=== PATIENT | male | born 1945 | race Caucasian/White ===

== ENCOUNTER 2023-11-18 02:46 | Emergency (ER) | payer MEDICARE, OTHER ==
[2023-11-18] MEDS: Sodium Chloride 0.9% 10 ML Syringe FLUSH PRN (03:11)
[2023-11-18 03:28] LABS: HEMATOCRIT 31.9 % (40.0-52.0); HEMOGLOBIN 10.8 g/dL (13.0-17.0); MEAN CORPUSCULAR HEMOGLOBIN 31.2 pg (27.0-31.0); MEAN CORPUSCULAR HGB CONC 33.9 g/dL (32.0-36.0); MEAN CORPUSCULAR VOLUME 92.2 fL (82.0-92.0); RED BLOOD CELL COUNT 3.46 10^6/uL (4.50-6.00); RED CELL DISTRIBUTION WIDTH 13.8 % (11.5-14.5); WHITE BLOOD CELL COUNT,WBC 13.82 10^3/uL (5.00-10.00)
[2023-11-18 03:29] LABS: BASOPHILS ABSOLUTE AUTO 0.07 10^3/uL (0.00-0.10); BASOPHILS PERCENT AUTO 0.5 % (0.0-1.0); EOSINOPHILS ABSOLUTE AUTO 0.41 10^3/uL (0.10-0.30); IMMATURE GRAN ABSOLUTE AUTO 0.14 10^3/uL (0.00-0.50); LYMPHOCYTES ABSOLUTE AUTO 2.81 10^3/uL (1.00-4.00); LYMPHOCYTES PERCENT AUTO 20.3 % (20.0-40.0); MEAN PLATELET VOLUME 8.7 fL (7.4-10.4); MONOCYTES ABSOLUTE AUTO 1.23 10^3/uL (0.10-0.80); MONOCYTES PERCENT AUTO 8.9 % (2.0-8.0); NEUTROPHILS ABSOLUTE AUTO 9.16 10^3/uL (2.50-7.00); NEUTROPHILS PERCENT AUTO 66.3 % (50.0-70.0); PLATELET COUNT,PLT 266 10^3/uL (150-400)
[2023-11-18] MEDS: Sodium Chloride 0.9% 1,000 ML IV ONE (03:29)
[2023-11-18 03:45] LABS: ALBUMIN 3.18 g/dL (3.40-5.00); ANION GAP 17.1 mmol/L (5-15); BILIRUBIN TOTAL 0.3 mg/dL (0.2-1.0); CARBON DIOXIDE,CO2 22.2 mmol/L (21.0-32.0); CREATININE 2.32 mg/dL (0.51-1.17); EST CRCL DRUG DOSING (CG) 25.39 mL/min; POTASSIUM,K 5.3 mmol/L (3.5-5.1); PROTEIN TOTAL,TP 7.4 g/dL (6.4-8.2)
== END 2023-11-18 05:24 ==
LOC: KA.ED 02:46
DX: R07.9 Chest pain, unspecified (principal); I12.9 Hypertensive chronic kidney disease with stage 1 through stage 4 chronic kidney disease, or unspecified chronic kidney disease; N18.9 Chronic kidney disease, unspecified; R79.89 Other specified abnormal findings of blood chemistry; Z91.012 Allergy to eggs; Z91.011 Allergy to milk products; Z86.73 Personal history of transient ischemic attack (TIA), and cerebral infarction without residual deficits; Z88.0 Allergy status to penicillin
CPT/HCPCS: 36415; 71045; 80053; 83605; 83880; 84484; 85025; 85379; 96360; 99285-25; J3490; J7030

== ENCOUNTER 2023-12-29 13:01 | Emergency (ER) | payer MEDICARE, OTHER ==
[2023-12-29] MEDS ORDERED: Sodium Chloride 0.9% 10 ML Syringe FLUSH PRN (13:14)
[2023-12-29 13:53] LABS: BASOPHILS ABSOLUTE AUTO 0.04 10^3/uL (0.00-0.10); BASOPHILS PERCENT AUTO 0.4 % (0.0-1.0); EOSINOPHILS ABSOLUTE AUTO 0.23 10^3/uL (0.10-0.30); EOSINOPHILS PERCENT AUTO 2.2 % (1.0-3.0); HEMOGLOBIN 12.2 g/dL (13.0-17.0); IMMATURE GRAN ABSOLUTE AUTO 0.02 10^3/uL (0.00-0.50); IMMATURE GRAN PERCENT AUTO 0.2 % (0.0-5.0); LYMPHOCYTES PERCENT AUTO 17.4 % (20.0-40.0); MEAN CORPUSCULAR HEMOGLOBIN 30.4 pg (27.0-31.0); MEAN CORPUSCULAR VOLUME 92.3 fL (82.0-92.0); MEAN PLATELET VOLUME 8.7 fL (7.4-10.4); MONOCYTES ABSOLUTE AUTO 0.75 10^3/uL (0.10-0.80); MONOCYTES PERCENT AUTO 7.2 % (2.0-8.0); NEUTROPHILS ABSOLUTE AUTO 7.52 10^3/uL (2.50-7.00); NEUTROPHILS PERCENT AUTO 72.6 % (50.0-70.0); PLATELET COUNT,PLT 213 10^3/uL (150-400); RED BLOOD CELL COUNT 4.01 10^6/uL (4.50-6.00); WHITE BLOOD CELL COUNT,WBC 10.36 10^3/uL (5.00-10.00)
[2023-12-29 14:10] LABS: ALBUMIN 3.61 g/dL (3.40-5.00); ANION GAP 16.7 mmol/L (5-15); BILIRUBIN TOTAL 0.5 mg/dL (0.2-1.0); CALCIUM 9.7 mg/dL (8.7-10.3); CARBON DIOXIDE,CO2 25.2 mmol/L (21.0-32.0); CREATININE 1.63 mg/dL (0.51-1.17); EST CRCL DRUG DOSING (CG) 36.13 mL/min; POTASSIUM,K 3.9 mmol/L (3.5-5.1)
[2023-12-29 14:14] LABS: LACTIC ACID 1.1 mmol/L (0.4-2.0)
[2023-12-29] MEDS: Sodium Chloride 0.9% 1,000 ML IV ONE ×2 (14:27→15:52)
[2023-12-29 16:35] LABS: APPEARANCE,URINE CLEAR (CLEAR); BILIRUBIN,URINE NEGATIVE (NEGATIVE); COLOR,URINE YELLOW (YELLOW); GLUCOSE,URINE NEGATIVE (NEGATIVE); KETONES,URINE NEGATIVE (NEGATIVE); LEUKOCYTE ESTERASE,URINE NEGATIVE (NEGATIVE); NITRITE,URINE NEGATIVE (NEGATIVE); OCCULT BLOOD,URINE NEGATIVE (NEGATIVE); PROTEIN,URINE 30 mg/dL (NEGATIVE); UROBILINOGEN,URINE 0.2 E.U./dL (0.2-1.0)
[2023-12-29 16:46] LABS: BACTERIA,URINE NOT SEEN /HPF (NONE TO FEW); EPITHELIAL CELLS,URINE RARE /LPF; MUCUS,URINE NOT SEEN /LPF (NEGATIVE); RBC,URINE 0-5 /HPF (0-5); WBC,URINE 0-5 /HPF (0-5)
== END 2023-12-29 19:02 ==
LOC: KA.ED 13:01
DX: R41.0 Disorientation, unspecified (principal); E86.0 Dehydration; R79.89 Other specified abnormal findings of blood chemistry; I10 Essential (primary) hypertension; J44.9 Chronic obstructive pulmonary disease, unspecified; Z79.899 Other long term (current) drug therapy; Z91.011 Allergy to milk products; Z91.018 Allergy to other foods; Z88.0 Allergy status to penicillin
CPT/HCPCS: 36415; 71045; 80053; 81001; 83605; 85025; 87040; 96360; 96361; 99285-25; J7030

== ENCOUNTER 2024-01-31 01:02 | Inpatient (IN) | payer MEDICARE, OTHER ==
[2024-01-31 01:29] LABS: HEMATOCRIT 41.5 % (40.0-52.0); HEMOGLOBIN 14.1 g/dL (13.0-17.0); MEAN CORPUSCULAR HEMOGLOBIN 30.5 pg (27.0-31.0); MEAN CORPUSCULAR VOLUME 89.8 fL (82.0-92.0); MEAN PLATELET VOLUME 9.6 fL (7.4-10.4); RED BLOOD CELL COUNT 4.62 10^6/uL (4.50-6.00); RED CELL DISTRIBUTION WIDTH 12.5 % (11.5-14.5); WHITE BLOOD CELL COUNT,WBC 14.08 10^3/uL (5.00-10.00)
[2024-01-31 01:53] LABS: BASOPHILS PERCENT AUTO 0.1 % (0.0-1.0); EOSINOPHILS PERCENT AUTO 0.1 % (1.0-3.0); IMMATURE GRAN PERCENT AUTO 0.1 % (0.0-5.0); LYMPHOCYTES PERCENT AUTO 4.5 % (20.0-40.0); MONOCYTES PERCENT AUTO 4.7 % (2.0-8.0); NEUTROPHILS PERCENT AUTO 90.5 % (50.0-70.0); SLIDE REVIEW YES
[2024-01-31 01:54] LABS: PLATELET COUNT,PLT 189 10^3/uL (150-400)
[2024-01-31 01:57] LABS: ALBUMIN 3.78 g/dL (3.40-5.00); ANION GAP 19.5 mmol/L (5-15); BILIRUBIN TOTAL 0.7 mg/dL (0.2-1.0); CALCIUM 10.2 mg/dL (8.7-10.3); CARBON DIOXIDE,CO2 23.4 mmol/L (21.0-32.0); CREATININE 1.57 mg/dL (0.51-1.17); EST CRCL DRUG DOSING (CG) 33.73 mL/min; LACTIC ACID 2.3 mmol/L (0.4-2.0); POTASSIUM,K 4.9 mmol/L (3.5-5.1); PROTEIN TOTAL,TP 8.3 g/dL (6.4-8.2)
[2024-01-31] MEDS: Sodium Chloride 0.9% 1,000 ML IV ONE (02:33)
[2024-01-31] MEDS: Meropenem 1 GM SDV IVPUSH ONE (02:33)
[2024-01-31] MEDS: Heparin Sodium 5,000 Units/ML Vial SUBCUT SCH (06:34)
[2024-01-31] MEDS ORDERED: Meropenem 1 GM in Sodium Chloride 0.9% 100 ML IV SCH (08:05)
[2024-01-31] MEDS: Folic Acid 1 MG Tab PO SCH (11:10)
[2024-01-31] MEDS: QUEtiapine 100 MG Tab PO SCH (11:10)
[2024-01-31] MEDS: Polyethylene Glycol 3350 Powder 17 GM Packet PO SCH (11:10)
[2024-01-31] MEDS: Escitalopram 10 MG Tab PO SCH (11:10)
[2024-01-31] MEDS: Clopidogrel 75 MG Tab PO SCH (11:10)
[2024-01-31] MEDS: Trolamine Salicylate/Aloe Vera 10% Crm 85 GM Tube TOP SCH (11:12)
[2024-01-31] MEDS: Sodium Chloride 0.9% 1,000 ML IV SCH (11:12)
[2024-01-31] MEDS: Meropenem 1 GM in Sodium Chloride 0.9% 100 ML IV SCH (13:13)
[2024-01-31] MEDS: atorvaSTATin 10 MG Tab PO SCH (20:55)
[2024-01-31] MEDS: OLANZapine 5 MG Tab PO SCH (20:56)
[2024-01-31] MEDS: Albuterol 0.083% 2.5 MG/3 ML Neb Soln NEB PRN (21:35)
[2024-02-01] MEDS: Sodium Chloride 0.9% 50 ML IV SCH (02:05)
[2024-02-01 06:51] LABS: BASOPHILS ABSOLUTE AUTO 0.03 10^3/uL (0.00-0.10); BASOPHILS PERCENT AUTO 0.2 % (0.0-1.0); EOSINOPHILS ABSOLUTE AUTO 0.31 10^3/uL (0.10-0.30); EOSINOPHILS PERCENT AUTO 2.5 % (1.0-3.0); HEMATOCRIT 27.3 % (40.0-52.0); IMMATURE GRAN ABSOLUTE AUTO 0.01 10^3/uL (0.00-0.50); IMMATURE GRAN PERCENT AUTO 0.1 % (0.0-5.0); LYMPHOCYTES ABSOLUTE AUTO 2.14 10^3/uL (1.00-4.00); LYMPHOCYTES PERCENT AUTO 16.9 % (20.0-40.0); MEAN CORPUSCULAR HEMOGLOBIN 30.4 pg (27.0-31.0); MEAN CORPUSCULAR HGB CONC 33.3 g/dL (32.0-36.0); MEAN CORPUSCULAR VOLUME 91.3 fL (82.0-92.0); MONOCYTES ABSOLUTE AUTO 0.82 10^3/uL (0.10-0.80); MONOCYTES PERCENT AUTO 6.5 % (2.0-8.0); NEUTROPHILS ABSOLUTE AUTO 9.32 10^3/uL (2.50-7.00); NEUTROPHILS PERCENT AUTO 73.8 % (50.0-70.0); PLATELET COUNT,PLT 171 10^3/uL (150-400); RED BLOOD CELL COUNT 2.99 10^6/uL (4.50-6.00); WHITE BLOOD CELL COUNT,WBC 12.63 10^3/uL (5.00-10.00)
[2024-02-01 07:10] LABS: ANION GAP 13.8 mmol/L (5-15); CALCIUM 8.9 mg/dL (8.7-10.3); CARBON DIOXIDE,CO2 23.6 mmol/L (21.0-32.0); CREATININE 1.76 mg/dL (0.51-1.17); EST CRCL DRUG DOSING (CG) 33.47 mL/min; POTASSIUM,K 3.4 mmol/L (3.5-5.1)
[2024-02-01 07:27] LABS: HEMOGLOBIN 9.1 g/dL (13.0-17.0)
[2024-02-01] MEDS: Potassium Chloride 20 MEQ Tab.ER PO ONE (08:25)
[2024-02-01 13:04] LABS: BASOPHILS ABSOLUTE AUTO 0.04 10^3/uL (0.00-0.10); BASOPHILS PERCENT AUTO 0.3 % (0.0-1.0); EOSINOPHILS ABSOLUTE AUTO 0.26 10^3/uL (0.10-0.30); EOSINOPHILS PERCENT AUTO 2.2 % (1.0-3.0); HEMOGLOBIN 9.6 g/dL (13.0-17.0); IMMATURE GRAN ABSOLUTE AUTO 0.02 10^3/uL (0.00-0.50); IMMATURE GRAN PERCENT AUTO 0.2 % (0.0-5.0); LYMPHOCYTES ABSOLUTE AUTO 1.54 10^3/uL (1.00-4.00); MEAN CORPUSCULAR HEMOGLOBIN 30.3 pg (27.0-31.0); MEAN CORPUSCULAR HGB CONC 33.1 g/dL (32.0-36.0); MEAN CORPUSCULAR VOLUME 91.5 fL (82.0-92.0); MEAN PLATELET VOLUME 9.3 fL (7.4-10.4); MONOCYTES ABSOLUTE AUTO 0.67 10^3/uL (0.10-0.80); MONOCYTES PERCENT AUTO 5.6 % (2.0-8.0); NEUTROPHILS ABSOLUTE AUTO 9.34 10^3/uL (2.50-7.00); NEUTROPHILS PERCENT AUTO 78.7 % (50.0-70.0); PLATELET COUNT,PLT 178 10^3/uL (150-400); RED BLOOD CELL COUNT 3.17 10^6/uL (4.50-6.00); RED CELL DISTRIBUTION WIDTH 12.9 % (11.5-14.5); WHITE BLOOD CELL COUNT,WBC 11.87 10^3/uL (5.00-10.00)
[2024-02-01 13:20] LABS: ANION GAP 13.6 mmol/L (5-15); CARBON DIOXIDE,CO2 24.5 mmol/L (21.0-32.0); CREATININE 1.7 mg/dL (0.51-1.17); EST CRCL DRUG DOSING (CG) 34.65 mL/min; MAGNESIUM 1.8 mg/dL (1.8-2.4); POTASSIUM,K 4.1 mmol/L (3.5-5.1)
[2024-02-01] MEDS: Doxycycline Monohydrate 100 MG Cap PO SCH (17:17)
[2024-02-01] MEDS: Magnesium Oxide 500 MG Tab PO ONE (17:17)
[2024-02-01] MEDS: Acetaminophen 325 MG Tab PO PRN (20:25)
[2024-02-02] MEDS: Sodium Chloride 0.9% 10 ML Syringe FLUSH PRN (01:38)
[2024-02-02] MEDS: Sodium Chloride 0.9% 50 ML IV SCH (01:39)
[2024-02-02] MEDS: Doxycycline Monohydrate 100 MG Cap PO SCH (08:54)
== END 2024-02-02 14:25 | disposition home or self-care (01) | DRG 871 ==
LOC: KA.ED 01:02 → KA.MS 02:45 → KA.ED 03:00
PROVIDERS: ADMIT Internal Medicine; ATTEND Internal Medicine
DX: A41.9 Sepsis, unspecified organism (principal); J18.9 Pneumonia, unspecified organism; J69.0 Pneumonitis due to inhalation of food and vomit; I12.9 Hypertensive chronic kidney disease with stage 1 through stage 4 chronic kidney disease, or unspecified chronic kidney disease; J96.01 Acute respiratory failure with hypoxia; F03.93 Unspecified dementia, unspecified severity, with mood disturbance; Z86.59 Personal history of other mental and behavioral disorders; R79.89 Other specified abnormal findings of blood chemistry; I13.0 Hypertensive heart and chronic kidney disease with heart failure and stage 1 through stage 4 chronic kidney disease, or unspecified chronic kidney disease; Z79.1 Long term (current) use of non-steroidal anti-inflammatories (NSAID); F03.918 Unspecified dementia, unspecified severity, with other behavioral disturbance; N17.9 Acute kidney failure, unspecified; Z91.011 Allergy to milk products; E87.20 Acidosis, unspecified; M10.9 Gout, unspecified; R65.20 Severe sepsis without septic shock; E78.00 Pure hypercholesterolemia, unspecified; I50.9 Heart failure, unspecified; J44.9 Chronic obstructive pulmonary disease, unspecified; H91.90 Unspecified hearing loss, unspecified ear; H54.7 Unspecified visual loss; K59.00 Constipation, unspecified; D64.9 Anemia, unspecified; G62.9 Polyneuropathy, unspecified; E87.6 Hypokalemia; N18.32 Chronic kidney disease, stage 3b; D63.1 Anemia in chronic kidney disease; R54 Age-related physical debility; Z88.0 Allergy status to penicillin; Z88.8 Allergy status to other drugs, medicaments and biological substances; Z79.02 Long term (current) use of antithrombotics/antiplatelets; Z86.73 Personal history of transient ischemic attack (TIA), and cerebral infarction without residual deficits; Z98.49 Cataract extraction status, unspecified eye; Z87.891 Personal history of nicotine dependence; Z91.012 Allergy to eggs; Z79.899 Other long term (current) drug therapy
CPT/HCPCS: 36415; 71045; 80048; 80053; 83605; 83735; 83880; 84484; 85025; 87040; 92610-GN; 93005; 93010; 96374; 99223-GT; 99232-GT; 99239-GT; 99284; 99285-25; A9270-GY; J1644; J2185; J3490; J7030; J7613-GY; Q3014